=== PATIENT | female | born 1950 | race Caucasian/White ===

== ENCOUNTER → 2016-10-27 | Day surgery (SDC) | payer OTHER ==
[2016-10-27 08:28] LABS: POTASSIUM 4.2 mmol/L (3.5-5.1)
[2016-10-27 08:31] LABS: CREATININE 0.67 mg/dl (0.44-1.00)
[2016-10-27 08:32] LABS: CALCIUM 9.2 mg/dl (8.4-10.2)
== END | disposition home or self-care (01) ==
LOC: LAB 07:38
PROVIDERS: ATTEND Emergency Medicine
DX: R73.09 Other abnormal glucose (principal)
CPT/HCPCS: 80048; 83036

== ENCOUNTER 2018-02-23 09:39 | Emergency (ER) | END 2018-02-23 12:15 | disposition home or self-care (01) ==